=== PATIENT | female | born 1945 | race Caucasian/White ===

== ENCOUNTER 2022-06-11 12:15 | Inpatient (IN) ==
[2022-07-04] MEDS ORDERED: Naloxone 0.4 mg VIAL 0.4 mg/ml 1 ml VIAL IV PRN (10:14)
[2022-07-04] MEDS ORDERED: Metoclopramide 5 MG/ML VIAL (10 mg) IV PRN (10:14)
[2022-07-04] MEDS ORDERED: Ondansetron 4 mg VIAL 2 MG/ML 2 ml VIAL IV PRN (10:14)
[2022-07-04] MEDS ORDERED: Buffered Lidocaine 1% SYRIN 1 ml INTRADERM ONE (10:14)
[2022-07-04] MEDS ORDERED: HYDROcodone/ACETAMIN 5/325 mg TAB PO PRN (10:14)
[2022-07-04] MEDS ORDERED: fentaNYL 100 mcg/2 ml 50 MCG/ML VIAL IV PRN (10:14)
[2022-07-04] MEDS ORDERED: Lactated Ringers 1000 ml BAG 1,000 ML IV SCH (11:00)
[2022-07-05] MEDS ORDERED: Tranexamic Acid 1,000 MG/10 ML 1,000 MG in NS 0.9% 50 ML 50 ML IV SCH
[2022-07-05] MEDS ORDERED: Ondansetron 4 mg VIAL 2 MG/ML 2 ml VIAL ONE (08:17)
[2022-07-05] MEDS ORDERED: Midazolam 5 mg/5 ml VIAL 1 mg/ml 5 ml VIAL (5 mg) ONE (08:17)
[2022-07-05] MEDS ORDERED: Propofol 10 MG/ML 20 ML BTL ONE (08:17)
[2022-07-05] MEDS ORDERED: Dexamethasone IV 4 MG/ML VIAL 1 ml VIAL ONE (08:17)
[2022-07-05] MEDS ORDERED: fentaNYL 100 mcg/2 ml 50 MCG/ML VIAL ONE (08:17)
[2022-07-05] MEDS ORDERED: Sterile Water for Inj 10 ML ONE (08:17)
[2022-07-05] MEDS ORDERED: Phenylephrine IV 10 MG/ML 1 ml VIAL ONE (08:18)
[2022-07-05] MEDS ORDERED: Bupivacaine 0.5% PF 10 ML SDV VIAL INJ ONE (08:18)
[2022-07-05] MEDS ORDERED: ceFAZolin 2 GM in NS PREMIX 2 GM/100 ML BAG IVPB ONE (12:40)
[2022-07-05] MEDS ORDERED: Ondansetron ODT 4 mg TAB 4 MG TAB PO PRN (15:34)
[2022-07-05] MEDS ORDERED: Ondansetron 4 mg VIAL 2 MG/ML 2 ml VIAL IV PRN (15:34)
[2022-07-05] MEDS ORDERED: Magnesium Hydroxide LIQ 30 ML UDC PO PRN (15:34)
[2022-07-05] MEDS ORDERED: Lactulose 30 ml UDC PO PRN (15:34)
[2022-07-05] MEDS ORDERED: Morphine 2 MG/ML SYRINGE IV PRN (15:34)
[2022-07-05] MEDS: Lactated Ringers 1000 ml BAG 1,000 ML IV SCH (19:59)
[2022-07-05] MEDS: Magnesium Hydroxide LIQ 30 ML UDC PO SCH (22:01)
[2022-07-05] MEDS: ceFAZolin 1 GM ADVAN 1 GM in NS 0.9% 50 ML 50 ML IVPB SCH (22:03)
[2022-07-06] MEDS: ceFAZolin 1 GM ADVAN 1 GM in NS 0.9% 50 ML 50 ML IVPB SCH ×2 (06:27→14:12)
[2022-07-06] MEDS: Lactated Ringers 1000 ml BAG 1,000 ML IV SCH (06:28)
[2022-07-06 08:27] LABS: Hematocrit 25.6 % (35-45); Hemoglobin 8.6 g/dL (11.5-14.3); Platelet Count 225 10^3/uL (150-450)
[2022-07-06] MEDS: Magnesium Hydroxide LIQ 30 ML UDC PO SCH (08:36)
[2022-07-06] MEDS ORDERED: Vitamin THERAPEUTIC TAB PO SCH (09:00)
[2022-07-06 09:22] LABS: Calcium 8.3 mg/dL (8.6-10.3); Creatinine, Serum 0.8 mg/dL (0.51-0.95); Potassium 3.6 mmol/L (3.5-5.0); eGFR CKD-EPI 76.3 (>60)
== END 2022-07-06 16:00 | disposition home or self-care (01) | DRG 470 ==
LOC: INTOOBSV 07-05 12:03 → AA 07-05 12:03 → SSU 07-05 19:42
PROVIDERS: ADMIT Orthopaedic Surgery Adult Reconstructive Orthopaedic Surgery; ATTEND Orthopaedic Surgery Adult Reconstructive Orthopaedic Surgery

== ENCOUNTER 2023-11-04 07:30 | Inpatient (IN) ==
[~2023-11-04 07:30] MED LIST: Metoclopramide 5 MG/ML VIAL (10 mg) IV PRN; NS 0.45% 1000 ml BAG 1,000 ML IV SCH; Naloxone 0.4 mg VIAL 0.4 mg/ml 1 ml VIAL IV PRN; Ondansetron 4 mg VIAL 2 MG/ML 2 ml VIAL IV PRN; fentaNYL 100 mcg/2 ml 50 MCG/ML VIAL IV PRN
[2023-11-04] MEDS ORDERED: Morphine 2 MG/ML SYRINGE IV PRN (08:25)
[2023-11-04] MEDS ORDERED: Lactulose 30 ml UDC PO PRN (08:25)
[2023-11-04] MEDS ORDERED: Ondansetron ODT 4 mg TAB 4 MG TAB PO PRN (08:25)
[2023-11-04] MEDS ORDERED: Calcium Carb (TUMS) 500 mg CHEW TAB PO PRN (08:25)
[2023-11-04] MEDS ORDERED: Magnesium Hydroxide LIQ 30 ML UDC PO PRN (08:25)
[2023-11-04] MEDS ORDERED: Tranexamic Acid 1 GM/100ML BAG 2,000 MG/200 ML BAG IV ONE (08:39)
[2023-11-04] MEDS ORDERED: ceFAZolin 2 GM PREMIX 2 GM/50 ML BAG ONE (08:39)
[2023-11-04 09:05] LABS: Rapid COVID-19 Molecular Undetected (Undetected)
[2023-11-04] MEDS ORDERED: Midazolam 2 mg/2 ml VIAL 1 mg/ml 2 ml VIAL (2 mg) ONE (09:18)
[2023-11-04] MEDS ORDERED: Propofol 10 MG/ML 20 ML BTL ONE (09:31)
[2023-11-04] MEDS ORDERED: ROPIVACAINE 5 MG/ML 30 ML BTL (0.5%) ONE (09:59)
[2023-11-04] MEDS ORDERED: Phenylephrine 40 mcg/mL 10mL (400mcg) SYRINGE ONE (11:22)
[2023-11-04] MEDS ORDERED: Phenylephrine IV 10 MG/ML 1 ml VIAL ONE (11:49)
[2023-11-04] MEDS: Lactated Ringers 1000 ml BAG 1,000 ML IV SCH ×2 (14:31→14:48)
[2023-11-04] MEDS: Magnesium Hydroxide LIQ 30 ML UDC PO SCH (14:47)
[2023-11-04] MEDS: Vitamin THERAPEUTIC TAB PO SCH (14:48)
[2023-11-04] MEDS: Acetaminophen IV 1 GM/100ML 1,000 MG/100 ML BAG IV ONE (14:50)
[2023-11-04] MEDS: Ondansetron 4 mg VIAL 2 MG/ML 2 ml VIAL IV PRN (15:57)
[2023-11-04] MEDS: Buffered Lidocaine 1% SYRIN 1 ml INTRADERM ONE (17:19)
[2023-11-04] MEDS: Scopolamine 1 mg/72hr PATCH TRANSDERM ONE (18:03)
[2023-11-04] MEDS: ceFAZolin 2 GM PREMIX 2 GM/50 ML BAG IV SCH (19:20)
[2023-11-05 06:50] LABS: Hematocrit 27.7 % (35-45); Hemoglobin 9.6 g/dL (11.5-14.3); Mean Platelet Volume 9.2 fL (7.5-11.2); Platelet Count 176 10^3/uL (150-450)
[2023-11-05 07:03] LABS: Calcium 8.2 mg/dL (8.6-10.3); Creatinine, Serum 0.79 mg/dL (0.51-0.95); Potassium 3.8 mmol/L (3.5-5.0); eGFR CKD-EPI 76.5 (>60)
[2023-11-05 09:54] VITALS: BP 103/69
== END 2023-11-05 13:00 | disposition home or self-care (01) | DRG 470 ==
LOC: AA 08:04 → SSU 08:25
PROVIDERS: ADMIT Orthopaedic Surgery Adult Reconstructive Orthopaedic Surgery; ATTEND Orthopaedic Surgery Adult Reconstructive Orthopaedic Surgery